=== PATIENT | female | born 1955 | race Caucasian/White ===

== ENCOUNTER 2016-12-17 13:10 | Outpatient (CLI) | payer BC ==
[2016-12-17 15:12] LABS: Hematocrit 44.2 % (36.0-47.0); Mean Platelet Volume 6.1 fL (7.4-10.4); Red Blood Cell (RBC) Count 4.59 mill/uL (4.20-5.40); White Blood Cell (WBC) Count 7.1 thou/uL (4.8-10.8)
--- NOTE | 2016-12-19 09:05 | EKG ---
Test Reason : PREOP Blood Pressure : / mmHG Vent. Rate : 081 BPM Atrial Rate : 081 BPM P-R Int : 144 ms QRS Dur : 092 ms QT Int : 396 ms P-R-T Axes : 061 045 062 degrees QTc Int : 460 ms Normal sinus rhythm Nonspecific ST and T wave abnormality Abnormal ECG When compared with ECG of 01-MAR-2013 17:26, Nonspecific T wave abnormality now evident in Lateral leads Confirmed by GARETH RUIZ ([id number]) on 12/19/2016 9:05:18 AM Referred By: BRONWYN Confirmed By:GARETH RUIZ
== END 2016-12-17 13:11 | disposition home or self-care (01) ==
LOC: LABBT 13:10
PROVIDERS: ATTEND Surgery
DX: Z01.818 Encounter for other preprocedural examination (principal); M48.06 Spinal stenosis, lumbar region; M51.16 Intervertebral disc disorders with radiculopathy, lumbar region
CPT/HCPCS: 85027; 85610; 85730; 93005; 93010

== ENCOUNTER 2016-12-19 10:19 | Day surgery (SDC) | payer BC ==
[2016-12-17 13:38] VITALS: BMI 28.2
[2016-12-19 11:28] LABS: Anion Gap 12 mmol/L (10-20); BUN (Urea Nitrogen) 17 mg/dL (9.8-20.1); Calc. Creatinine Clearance 111 mL/min (70-130); Calcium 10.1 mg/dL (7.8-10.44); Carbon Dioxide 26 mmol/L (23-31); Chloride 106 mmol/L (98-107); Estimated GFR-MDRD Greater than 90
[2016-12-19] MEDS ORDERED: Fentanyl 100 MCG/2 ML VIAL ONE (14:08)
[2016-12-19] MEDS ORDERED: Bacitracin Zinc Ointment 30 gm TUBE ONE (14:12)
[2016-12-19] MEDS ORDERED: Sodium Chloride 0.9% 10 ML ONE (14:12)
[2016-12-19] MEDS ORDERED: Thrombin 5000 UNITS/5 ML VIAL ONE (14:13)
[2016-12-19] MEDS ORDERED: Midazolam HCl 2 mg/2 ml Vial ONE (14:36)
[2016-12-19] MEDS ORDERED: Ondansetron HCl/PF 4 MG/2 ML Vial ONE (14:39)
[2016-12-19] MEDS ORDERED: Dexamethasone 20 MG/5 ML VIAL ONE (14:39)
[2016-12-19] MEDS ORDERED: Ketorolac Tromethamine 30 MG/ML VIAL ONE (14:39)
[2016-12-19] MEDS ORDERED: Propofol 200 MG/20 ML VIAL ONE (14:39)
[2016-12-19] MEDS ORDERED: Lidocaine 1% PF 5 ML VIAL ONE (14:39)
[2016-12-19] MEDS ORDERED: HYDROmorphone 2 MG/ML VIAL SLOW IVP PRN (16:44)
[2016-12-19] MEDS ORDERED: Ondansetron HCl/PF 4 MG/2 ML Vial IVP PRN (16:44)
[2016-12-19] MEDS ORDERED: Acetaminophen 325 MG TAB PO PRN (16:45)
[2016-12-19] MEDS ORDERED: Fleet Enema 133 ML BOT PR PRN (16:45)
[2016-12-19] MEDS ORDERED: Morphine Sulfate 2 MG/ML SYRINGE SLOW IVP PRN (16:45)
[2016-12-19] MEDS ORDERED: Mag-Al 1200 mg/1200 mg/30 ML UDCUP PO PRN (16:45)
[2016-12-19] MEDS ORDERED: HYDROcodone/Acetaminophen 7.5/325 mg Tablet PO PRN (16:45)
[2016-12-19] MEDS ORDERED: Acetaminophen/Codeine 30-300mg Tablet PO PRN (16:45)
[2016-12-19] MEDS ORDERED: Bisacodyl 10 MG SUPP PR PRN (16:45)
[2016-12-19] MEDS ORDERED: Milk Of Magnesia 30 ML UDCUP PO PRN (16:45)
[2016-12-19] MEDS ORDERED: tiZANidine HCl 4 MG TAB PO PRN (16:45)
[2016-12-19] MEDS ORDERED: Promethazine HCl 25 MG/ML VIAL IM PRN (16:45)
[2016-12-19] MEDS ORDERED: traMADol HCl 50 MG TAB PO PRN (16:45)
[2016-12-19] MEDS ORDERED: Temazepam 15 MG CAP PO PRN (16:59)
[2016-12-19] MEDS: Sodium Chloride 0.9% 1,000 ML IV SCH ×2 (18:01→20:35)
[2016-12-19] MEDS ORDERED: Ubidecarenone 50 MG CAP PO SCH (21:00)
[2016-12-19] MEDS ORDERED: Loratadine 10 MG TAB PO SCH (21:00)
[2016-12-20] MEDS ORDERED: Lisinopril/Hydrochlorothiazide 10 mg/12.5 mg Tablet PO SCH (09:00)
[2016-12-20] MEDS ORDERED: Non-Formulary Item 1 EACH (Biotin [Biotin] 10,000 MCG) PO SCH (09:00)
[2016-12-20] MEDS ORDERED: Fish Oil 1,000 MG CAP PO SCH (09:00)
[2016-12-20] MEDS ORDERED: Cyanocobalamin (Vitamin B-12) 1,000 MCG TAB PO SCH (09:00)
--- NOTE | 2016-12-20 09:09 | PRG ---
DATE OF SERVICE: 12/20/2016 Ms. Arango is doing well postoperative day 1 from left L5-S1 hemilaminotomy, foraminotomy, and d iskectomy. She has as expected some incisional pain and her left leg pain has certainly improved co mpared to before the surgery. We went over intraoperative and postoperative issues and I should not e she has good strength in her lower extremity myotomes. We will plan for dismissal.
--- NOTE | 2016-12-20 09:58 | OP ---
DATE OF SURGERY: 12/19/2016 OR: OR #12. WOUND TYPE: Type 1 wound. SURGEON: Oseas Resendiz M.D. BUILDING DRAFTER: Timur Duarte PA-C PREPROCEDURE DIAGNOSES: Left L5-S1 disk extrusion with left S1 radiculopathy. POSTPROCEDURE DIAGNOSES: Left L5-S1 disk extrusion with left S1 radiculopathy. PROCEDURE: 1. Left L5-S1 hemilaminotomy, foraminotomy, and diskectomy. 2. Use of operative microscope for microdissection. DESCRIPTION OF PROCEDURE: After informed consent was obtained from the patient, the patient brought to OR 12. Proper patient pause and identification was carried out. She was placed under excellent general endotracheal anesthesia and positioned prone on the operating room table. The L5-S1 dorsal spines and lamina were identified, an incision was drawn out over this area. This area was sterile ly cleansed, prepared, and draped. Proper patient pause and identification was carried out. The wo und was then opened with a combination of sharp, monopolar and blunt dissection, left L5-S1 hemilami na complex was exposed. Localization film confirmed our area of interest. We then performed a left L5-S1 hemilaminotomy, foraminotomy, and with the use of the operative microscope, performed a diske ctomy. We had excellent decompression of the left S1 nerve root and assured freedom of the left L5 nerve root. We were satisfied with our decompression. There was no spinal fluid leak. Hemostasis was maximized throughout. We then copiously irrigated the wound and closed it in anatomic layers fo llowing the sprinkling of vancomycin powder. The patient then emerged from anesthesia.
[2016-12-20 12:39] VITALS: BP 115/72; TEMP 97.6
== END 2016-12-20 09:20 | disposition home or self-care (01) ==
LOC: SDC 10:19 → SURG A 16:45 → SDC 12-20 09:20
PROVIDERS: ATTEND Surgery
PROC: 0SB20ZZ Excision of Lumbar Vertebral Disc, Open Approach (ICD-10-PCS; principal; 2016-12-19)
PROC: 01NB0ZZ Release Lumbar Nerve, Open Approach (ICD-10-PCS; principal; 2016-12-19)
DX: M51.17 Intervertebral disc disorders with radiculopathy, lumbosacral region (principal); I10 Essential (primary) hypertension; E78.5 Hyperlipidemia, unspecified; Z85.42 Personal history of malignant neoplasm of other parts of uterus; Z88.8 Allergy status to other drugs, medicaments and biological substances; Z90.710 Acquired absence of both cervix and uterus; Z80.42 Family history of malignant neoplasm of prostate; Z82.49 Family history of ischemic heart disease and other diseases of the circulatory system; Z79.899 Other long term (current) drug therapy
CPT/HCPCS: 76001; 80048; A4216; J1100; J1885; J2001; J2250; J2405; J2704; J3010; J3370; J3490

== ENCOUNTER 2017-02-27 12:30 | Outpatient (CLI) | payer BC | END 2017-02-27 12:31 | disposition home or self-care (01) | LOC: BICMAMMO 12:30 | PROVIDERS: ATTEND Obstetrics & Gynecology | DX: Z12.31 Encounter for screening mammogram for malignant neoplasm of breast (principal) | CPT/HCPCS: 77063 ==

== ENCOUNTER 2017-05-06 08:51 | Outpatient (CLI) | payer BC | END 2017-05-06 08:52 | disposition home or self-care (01) | LOC: LABBT 08:51 | PROVIDERS: ATTEND Orthopaedic Surgery | DX: Z01.810 Encounter for preprocedural cardiovascular examination (principal); Z01.812 Encounter for preprocedural laboratory examination; M17.12 Unilateral primary osteoarthritis, left knee | CPT/HCPCS: 87081; 93005; 93010 ==

== ENCOUNTER 2017-05-06 09:00 | Inpatient (IN) | payer BC ==
[2017-05-06 09:30] VITALS: BMI 27.3
[2017-05-19] MEDS ORDERED: Fentanyl 100 MCG/2 ML VIAL ONE ×3 (05:46→06:44)
[2017-05-19] MEDS ORDERED: Midazolam HCl 2 mg/2 ml Vial ONE (06:09)
[2017-05-19] MEDS ORDERED: Bupivacaine 0.5% 10 ML VIAL ONE (06:16)
[2017-05-19] MEDS ORDERED: CEFAZOLIN/Water 2 GM/20 ML SYRINGE ONE (06:19)
[2017-05-19] MEDS ORDERED: Tranexamic Acid 1,000 MG/100 ML BAG ONE ×2 (06:19→09:00)
[2017-05-19] MEDS ORDERED: Lidocaine 1% (PF) 30 ML VIAL ONE (06:19)
[2017-05-19] MEDS ORDERED: traMADol HCl 50 MG TAB PO PRN ×3 (07:08→08:56)
[2017-05-19] MEDS ORDERED: HYDROcodone/Acetaminophen 10/325 mg Tablet PO PRN ×2 (07:08)
[2017-05-19] MEDS ORDERED: Zolpidem Tartrate 5 MG TAB PO PRN ×2 (07:08→08:56)
[2017-05-19] MEDS ORDERED: Ondansetron PF 4 MG/2 ML Vial IVP PRN ×2 (07:08→08:56)
[2017-05-19] MEDS ORDERED: Promethazine HCl 25 MG/ML VIAL IM PRN ×3 (07:08→08:56)
[2017-05-19] MEDS ORDERED: Ropivacaine 0.2% 550 ML 550 ML NERVE BLCK SCH (07:08)
[2017-05-19] MEDS ORDERED: HYDROmorphone 2 MG/ML VIAL SLOW IVP PRN (08:27)
[2017-05-19] MEDS ORDERED: Ondansetron HCl/PF 4 MG/2 ML Vial IVP PRN (08:27)
[2017-05-19] MEDS ORDERED: Promethazine HCl 25 MG/ML VIAL SLOW IVP PRN (08:27)
[2017-05-19] MEDS ORDERED: Acetaminophen 325 MG TAB PO PRN (08:56)
[2017-05-19] MEDS ORDERED: diphenhydrAMINE 25 MG CAP PO PRN (08:56)
[2017-05-19] MEDS ORDERED: Furosemide 20 MG TAB PO PRN (08:58)
[2017-05-19] MEDS ORDERED: Non-Formulary Item 1 EACH (Multivitamin [Multivitamins] 1 CAP) PO SCH (09:00)
[2017-05-19] MEDS ORDERED: Tranexamic Acid 1,000 MG in Sodium Chloride 0.9% 100 ML IVPB SCH (09:00)
--- NOTE | 2017-05-19 09:09 | OP ---
DATE OF PROCEDURE: 05/19/2017 PREOPERATIVE DIAGNOSIS: Left knee osteoarthrosis. POSTOPERATIVE DIAGNOSIS: Left knee osteoarthrosis. PROCEDURE PERFORMED: Left total knee replacement using [employer] pinless navigation. SURGEON: Chad Moeller M.D. MIXOLOGIST: Raul Aleman PA-C. BLOOD LOSS: Minimal. COMPLICATIONS: None. ANESTHESIA: The patient had general anesthetic, she also had preoperative blocks. IMPLANTS: The left knee was a [employer] total knee system, femur was size 4 cruciate retaini ng femur. We used a size 3 universal tibial baseplate. We used a 3 x 9 mm CSX3 tibial bearing and a n asymmetric 29 x 9 X3 patella. DISPOSITION: She did go to the recovery room in stable condition. INDICATIONS: This is a 62-year-old female who has failed nonoperative treatment for left knee arthri tis and at this time wished to have her knee replaced. PROCEDURE IN DETAIL: After all appropriate consent forms were explained and signed, the patient was taken back to the Operating Room and at this time was given general anesthetic. Once the level of ane sthesia was appropriate, a well-padded tourniquet was placed on the left leg and the leg was then pre pped and draped in standard surgical fashion. The limb was exsanguinated and tourniquet taken up to 3 00 mmHg. Midline incision was made with a 10 blade down through the skin and subcutaneous tissue. Bov ie electrocautery was used to coagulate any brisk venous bleeding. A new blade was used to make a med ial parapatellar arthrotomy. Small subperiosteal release was performed medially and excess fat pad wa s removed. The knee was flexed up to gain access to the femur. The femur was navigated and distal fem oral resection was made. Epicondylar access was used to align our sizing jig and this was pinned in p lace. We sized our femur to be a size 4 cruciate retaining femur, 4:1 cutting block was applied and p inned. Anterior and posterior chamfer cuts were then made. We navigated out our proximal tibia and ma de our proximal tibial resection. Spreaders were used to remove any posterior osteophytes off the nikky k of the femur as well as remaining meniscal tissue. A long alignment michele was then used to achieve co rrect rotation of our tibial baseplate and a size 3 universal was chosen. This was pinned in place. W e trialed the polyethylene and a a 3 x 9 mm CSX3 tibial bearing polyethylene gave us full extension a nd good stability throughout range of motion. Two towel clips and a saw were used to cut our patella. Three lug nuts were drilled and 29 x 9 X3 patella was trialed which sat nicely in the trochlear groo ve. We then drilled our femur and punched our tibia. All components were removed. The knee was thorou ghly irrigated and dried. Cement was mixed into the cement gun on the back table. Components were the n placed. The knee was held out in full extension until the cement had dried. All excess bone cement was removed. Multiple #2 Vicryl stitches as well as a Quill was used to close our extensor mechanism . 0 Quill followed by a running Monoderm was then used to close the skin. Surgicel glue was then used on the skin. Once this had dried, soft tissue dressing was applied to the limb, tourniquet was let d own, and the toes pinked up nicely. The patient was then awakened and taken to the Recovery Room in stable condition. All counts were correct at the end of the case. The patient did receive preoperativ e IV antibiotics. The patient was injected with Exparel for postoperative pain relief.
[2017-05-19] MEDS: Fentanyl 100 MCG/2 ML VIAL IV PRN (10:29)
[2017-05-19] MEDS: Ferrous Gluconate 324 MG TAB PO SCH ×2 (10:35→20:50)
[2017-05-19] MEDS: Multivitamin W/ Minerals 1 TAB PO SCH (10:36)
[2017-05-19] MEDS: Senokot S 8.6-50 MG TAB PO SCH ×2 (10:36→20:50)
[2017-05-19] MEDS ORDERED: Loperamide HCl 2 MG CAP PO PRN (10:43)
[2017-05-19] MEDS ORDERED: Senokot 8.6 MG TAB PO PRN (10:43)
[2017-05-19] MEDS ORDERED: Artificial Tears 18 DROP/0.9 ML EA EYE PRN (10:43)
[2017-05-19] MEDS ORDERED: hydrALAZINE 20 MG/ML VIAL SLOW IVP PRN (10:43)
[2017-05-19] MEDS ORDERED: Chloraseptic Spray 180 ml Bottle PO PRN (10:43)
[2017-05-19] MEDS ORDERED: Mag-Al 1200 mg/1200 mg/30 ML UDCUP PO PRN (10:43)
[2017-05-19] MEDS ORDERED: Milk Of Magnesia 30 ML UDCUP PO PRN (10:43)
[2017-05-19] MEDS ORDERED: Eucerin (Mineral Oil/Petrolatum,White) 30 gm Jar TOP PRN (10:43)
[2017-05-19] MEDS ORDERED: Diabetic Tussin 200 MG/10 ML UDCUP PO PRN (10:43)
--- NOTE | 2017-05-19 10:48 | PDOC.PN ---
- Subjective Encounter Start Date: 05/19/17 Encounter Start Time: 10:46 -: old records requested/rev s/p left total knee replacement earlier today, doing well post op Patient seen and examined. - Objective MAR Reviewed: Yes Vital Signs & Weight: Weight Weight 175 lb Phys Exam - Physical Examination Constitutional: NAD HEENT: PERRLA, moist MMs, sclera anicteric Neck: no JVD, supple Respiratory: no wheezing, no rales, no rhonchi Cardiovascular: RRR, no significant murmur, no rub Gastrointestinal: soft, non-tender, no distention, positive bowel sounds Musculoskeletal: no edema, pulses present left knee with dressing, nerve block+ Neurological: non-focal, normal sensation Psychiatric: normal affect, A&O x 3 Skin: no rash, normal turgor Dx/Plan (1) Status post total left knee replacement Code(s): Z96.652 - PRESENCE OF LEFT ARTIFICIAL KNEE JOINT Status: Acute (2) Allergic rhinitis Code(s): J30.9 - ALLERGIC RHINITIS, UNSPECIFIED Status: Chronic (3) Hypertension Code(s): I10 - ESSENTIAL (PRIMARY) HYPERTENSION Status: Chronic (4) Osteoarthritis Code(s): M19.90 - UNSPECIFIED OSTEOARTHRITIS, UNSPECIFIED SITE Status: Chronic - Plan cont current plan of care, PT/OT, social services analyst * continue aspirin for DVT prophylaxis * add pepcid 20 mg po bid for GI prophylaxis * continue PT/OT as per [facility] protocol treatment * code status: full code * pain control with pain meds as ordered * medication reviewed as below * symptomatic treatment * continue selected home medication as below. History of Present Illnes - History of Present Illness Reason for Visit: admitted for left total knee replacement History of Present Illness: consulted for medical management. - Past Medical History Cardiac: HTN, Hyperlipidemia Musculoskeletal: Osteoarthritis ENT: Allergic rhinitis - Past Surgical History Past Surgical History: Other (hysterescopy and endometrial polyp removal, colonoscopy), Total Knee Replacement (left) - Past Family History Family History: None - Past Social History Smoke: No Alcohol: None Drugs: None Lives: With Family Domestic Violence: Negative Review of Systems - Review of Systems Constitutional: negative: fever, chills, sweats, weakness, malaise, other ENT: negative: Ear Pain, Ear Discharge, Nose Pain, Nose Discharge, Nose Congestion, Mouth Pain, Mouth Swelling, Throat Pain, Throat Swelling, Other Respiratory: negative: Cough, Dry, Shortness of Breath, Hemoptysis, SOB with Excertion, Pleuritic Pain, Sputum, Wheezing Cardiovascular: negative: chest pain, palpitations, orthopnea, paroxysmal nocturnal dyspnea, edema, light headedness, other Gastrointestinal: negative: Nausea, Vomiting, Abdominal Pain, Diarrhea, Constipation, Melena, Hematochezia, Other Genitourinary: negative: Dysuria, Frequency, Incontinence, Hematuria, Retention , Other Musculoskeletal: negative: Neck Pain, Shoulder Pain, Arm Pain, Back Pain, Hand Pain, Leg Pain, Foot Pain, Other - Medications/Allergies Allergies/Adverse Reactions: Allergies Allergy/AdvReac Type Severity Reaction Status Date / Time prednisone Allergy Verified 05/06/17 09:30 Medications: Current Medications Acetaminophen (Tylenol) 650 mg PO Q4H PRN PRN Reason: FELIPE/ T > 101F; Mild Pain (1-3) Hydrocodone Bitart/Acetaminophen ([place] 10/325) 1 tab PO Q4H PRN PRN Reason: Pain (1-3) Hydrocodone Bitart/Acetaminophen ([place] 10/325) 2 tab PO Q4H PRN PRN Reason: PAIN (4-6) Al Hydroxide/Mg Hydroxide (Maalox) 15 ml PO Q4H PRN PRN Reason: Heartburn or Indigestion Artificial Tears (Tears Naturale) 0 drop EA EYE PRN PRN PRN Reason: Dry Eyes Aspirin (Ecotrin) 81 mg PO BID [facility] Cefazolin Sodium (Ancef) 2 gm SLOW IVP Q8HR [facility] Stop: 05/19/17 22:01 Diphenhydramine HCl (Benadryl) 25 mg PO Q6H PRN PRN Reason: Itching Famotidine (Pepcid) 20 mg PO BID [facility] Fentanyl (Sublimaze) 50 mcg IV Q1H PRN PRN Reason: BT PAIN Last Admin: 05/19/17 10:29 Dose: 50 mcg Fentanyl (Pacu-Sublimaze) 50 mcg SLOW IVP Q10MIN PRN PRN Reason: Moderate to Severe Pain (6-10) Stop: 05/19/17 11:27 Ferrous Gluconate (Fergon) 324 mg PO BID [facility] Last Admin: 05/19/17 10:35 Dose: Not Given Fluticasone Propionate (Flonase Nasal [place]) 0 gm NASAL QAM [facility] Furosemide (Lasix) 20 mg PO PRN PRN PRN Reason: Edema Guaifenesin (Robitussin Sf) 200 mg PO Q4H PRN PRN Reason: Cough Lisinopril/HCTZ (Prinizide 10-12.5) 1 tab PO QAM [facility] Hydralazine HCl (Apresoline) 10 mg SLOW IVP Q4H PRN PRN Reason: Systolic BP > 180 Hydromorphone HCl (Pacu-Dilaudid) 0.5 mg SLOW IVP Q10MIN PRN PRN Reason: Moderate to Severe Pain (6-10) Stop: 05/19/17 11:27 Ropivacaine (Ropivacaine 0.2% 550 Ml) 550 mls @ 0 mls/hr NERVE BLCK INF [facility] PRN Reason: As Directed Sodium Chloride (Normal Saline 0.9%) 1,000 mls @ 100 mls/hr IV .Q10H [facility] Tranexamic Acid 1,000 mg/ (Sodium Chloride) 110 mls @ 200 mls/hr IVPB ONE [facility] Stop: 05/19/17 14:00 Vancomycin HCl 1 gm/ Device 200 mls @ 200 mls/hr IVPB 1800 [facility] Stop: 05/19/17 18:59 Iron/Minerals/Multivitamins (Theragran M) 1 tab PO DAILY [facility] Last Admin: 05/19/17 10:36 Dose: Not Given Ketorolac Tromethamine (Toradol) 30 mg IVP Q6HR [facility] Stop: 05/21/17 06:01 Loperamide HCl (Imodium) 2 mg PO PRN PRN PRN Reason: Diarrhea/Loose Stools Loratadine (Claritin) 10 mg PO HS [facility] Magnesium Hydroxide (Milk Of Magnesium) 30 ml PO DAILYPRN PRN PRN Reason: Constipation Mineral Oil/White Petrolatum (Eucerin Cream) 0 gm TOP BIDPRN PRN PRN Reason: Dry Skin Ondansetron HCl (Pacu-Zofran) 4 mg IVP ONE PRN PRN Reason: Nausea/Vomiting Stop: 05/19/17 11:27 Ondansetron HCl (Zofran) 4 mg IVP Q6H PRN PRN Reason: Nausea/Vomiting Phenol (Chloraseptic [place] 180 Ml Bot) 0 ml PO PRN PRN PRN Reason: Sore Throat Promethazine HCl (Pacu-Phenergan) 6.25 mg SLOW IVP ONE PRN PRN Reason: Nausea/Vomiting Stop: 05/19/17 11:27 Promethazine HCl (Pacu-Phenergan) 6.25 mg IM ONE PRN PRN Reason: Nausea/Vomiting Stop: 05/19/17 11:27 Promethazine HCl (Phenergan) 12.5 mg IM Q4H PRN PRN Reason: Nausea/Vomiting Senna (Senokot) 2 tab PO HSPRN PRN PRN Reason: Constipation Senna/Docusate Sodium (Senokot S) 2 tab PO BID [facility] Last Admin: 05/19/17 10:36 Dose: Not Given Sodium Chloride (Flush - Normal Saline) 10 ml IVF PRN PRN PRN Reason: Saline Flush Temazepam (Restoril) 30 mg PO HS [facility] Tramadol HCl (Ultram) 100 mg PO Q6H PRN PRN Reason: Mild Pain (1-3) Zolpidem Tartrate (Ambien) 5 mg PO HSPRN PRN PRN Reason: Insomnia
[2017-05-19] MEDS: Ketorolac Tromethamine 30 MG/ML VIAL IVP SCH ×2 (12:07→17:49)
[2017-05-19] MEDS: Fluticasone Propionate Nasal Spray 16 gm Bottle NASAL SCH (12:08)
[2017-05-19] MEDS: Lisinopril/Hydrochlorothiazide 10 mg/12.5 mg Tablet PO SCH (12:11)
[2017-05-19] MEDS: Aspirin 81 mg Enteric Coated Tablet PO SCH ×2 (12:16→21:15)
[2017-05-19] MEDS: Sodium Chloride 0.9% 1,000 ML IV SCH ×2 (12:17→19:19)
[2017-05-19] MEDS ORDERED: Dexamethasone 20 MG/5 ML VIAL ONE (15:00)
[2017-05-19] MEDS ORDERED: Ondansetron PF 4 MG/2 ML Vial ONE (15:00)
[2017-05-19] MEDS ORDERED: PROPOFOL 200 MG/20 ML VIAL ONE (15:00)
[2017-05-19] MEDS ORDERED: Ropivacaine 0.5% HCl/PF (150 MG/30 ML VIAL) ONE (15:12)
[2017-05-19] MEDS ORDERED: Ropivacaine 0.2% HCl/PF (40 MG/20 ML VIAL) ONE (15:12)
[2017-05-19] MEDS: CEFAZOLIN/Water 2 GM/20 ML SYRINGE SLOW IVP SCH ×2 (15:48→21:16)
[2017-05-19] MEDS ORDERED: Vancomycin HCl 1 GM in Premix Bag 1 BAG IVPB SCH (18:00)
[2017-05-19] MEDS: Temazepam 15 MG CAP PO SCH (21:14)
[2017-05-19] MEDS: Famotidine 20 MG TAB PO SCH (21:14)
[2017-05-19] MEDS: Loratadine 10 MG TAB PO SCH (21:15)
[2017-05-20] MEDS: Ketorolac Tromethamine 30 MG/ML VIAL IVP SCH ×5 (00:21→23:38)
[2017-05-20] MEDS: Sodium Chloride 0.9% 1,000 ML IV SCH ×2 (04:10→15:02)
[2017-05-20 04:48] LABS: Mean Corpuscular HGB CONC 32.6 g/dL (32.0-36.0); Mean Corpuscular Hemoglobin 30.8 pg (27.0-31.0); Mean Corpuscular Volume 94.6 fl (81.0-99.0); Mean Platelet Volume 6.1 fL (7.4-10.4); Platelet Count 196 thou/uL (130-400); RBC Distribution Width 11.8 % (11.5-14.5); Red Blood Cell (RBC) Count 3.88 mill/uL (4.20-5.40); White Blood Cell (WBC) Count 11.8 thou/uL (4.8-10.8)
[2017-05-20] MEDS: Fentanyl 100 MCG/2 ML VIAL IV PRN (07:32)
[2017-05-20] MEDS: Fluticasone Propionate Nasal Spray 16 gm Bottle NASAL SCH (09:35)
[2017-05-20] MEDS: Senokot S 8.6-50 MG TAB PO SCH ×2 (09:35→22:01)
[2017-05-20] MEDS: Multivitamin W/ Minerals 1 TAB PO SCH (09:35)
[2017-05-20] MEDS: Famotidine 20 MG TAB PO SCH ×2 (09:36→22:02)
[2017-05-20] MEDS: Ferrous Gluconate 324 MG TAB PO SCH ×2 (09:36→22:00)
[2017-05-20] MEDS: Aspirin 81 mg Enteric Coated Tablet PO SCH ×2 (09:36→21:59)
[2017-05-20] MEDS: Lisinopril/Hydrochlorothiazide 10 mg/12.5 mg Tablet PO SCH (09:37)
--- NOTE | 2017-05-20 09:39 | PDOC.PN ---
- Subjective Encounter Start Date: 05/20/17 Encounter Start Time: 08:20 Patient seen and examined. No new complaints. No overnight events per pt percocet works better than hydrocodon for her pain - Objective MAR Reviewed: Yes Vital Signs & Weight: Vital Signs (12 hours) Pulse Resp BP Pulse Ox 05/20/17 00:21 69 16 112/70 94 L Weight Weight 175 lb I&O: 05/19/17 05/20/17 05/21/17 06:59 06:59 06:59 Intake Total 1650 Output Total 1000 Balance 650 Result Diagrams: 05/20/17 03:55 Phys Exam - Physical Examination Constitutional: NAD HEENT: PERRLA, moist MMs, sclera anicteric Neck: no JVD, supple Respiratory: no wheezing, no rales, no rhonchi Cardiovascular: RRR, no significant murmur, no rub Gastrointestinal: soft, non-tender, no distention, positive bowel sounds Musculoskeletal: no edema, pulses present surgical site with dressing, nerve block + Neurological: non-focal, normal sensation, moves all 4 limbs Psychiatric: normal affect, A&O x 3 Skin: no rash, normal turgor Dx/Plan (1) Status post total left knee replacement Code(s): Z96.652 - PRESENCE OF LEFT ARTIFICIAL KNEE JOINT Status: Acute (2) Allergic rhinitis Code(s): J30.9 - ALLERGIC RHINITIS, UNSPECIFIED Status: Chronic (3) Hypertension Code(s): I10 - ESSENTIAL (PRIMARY) HYPERTENSION Status: Chronic (4) Osteoarthritis Code(s): M19.90 - UNSPECIFIED OSTEOARTHRITIS, UNSPECIFIED SITE Status: Chronic - Plan cont current plan of care, plan discussed w/ family, PT/OT * medication reviewed as below * symptomatic treatment * continue aspirin for DVT prophylaxis * continue PT as per [facility] protocol * pain control * will ask ortho to give prescription for percocet per pt request. Review of Systems - Review of Systems Eyes: negative: Pain, Vision Change, Conjunctivae Inflammation, Eyelid Inflammation, Redness, Other ENT: negative: Ear Pain, Ear Discharge, Nose Pain, Nose Discharge, Nose Congestion, Mouth Pain, Mouth Swelling, Throat Pain, Throat Swelling, Other Respiratory: negative: Cough, Dry, Shortness of Breath, Hemoptysis, SOB with Excertion, Pleuritic Pain, Sputum, Wheezing Cardiovascular: negative: chest pain, palpitations, orthopnea, paroxysmal nocturnal dyspnea, edema, light headedness, other Gastrointestinal: negative: Nausea, Vomiting, Abdominal Pain, Diarrhea, Constipation, Melena, Hematochezia, Other Genitourinary: negative: Dysuria, Frequency, Incontinence, Hematuria, Retention , Other Musculoskeletal: negative: Neck Pain, Shoulder Pain, Arm Pain, Back Pain, Hand Pain, Leg Pain, Foot Pain, Other Skin: negative: Rash, Lesions, Ricardo, Bruising, Other - Medications/Allergies Allergies/Adverse Reactions: Allergies Allergy/AdvReac Type Severity Reaction Status Date / Time prednisone Allergy Verified 05/06/17 09:30 Medications: Current Medications Acetaminophen (Tylenol) 650 mg PO Q4H PRN PRN Reason: FELIPE/ T > 101F; Mild Pain (1-3) Hydrocodone Bitart/Acetaminophen ([place] 10/325) 1 tab PO Q4H PRN PRN Reason: Pain (1-3) Hydrocodone Bitart/Acetaminophen ([place] 10/325) 2 tab PO Q4H PRN PRN Reason: PAIN (4-6) Al Hydroxide/Mg Hydroxide (Maalox) 15 ml PO Q4H PRN PRN Reason: Heartburn or Indigestion Artificial Tears (Tears Naturale) 0 drop EA EYE PRN PRN PRN Reason: Dry Eyes Aspirin (Ecotrin) 81 mg PO BID [facility] Last Admin: 05/20/17 09:36 Dose: 81 mg Diphenhydramine HCl (Benadryl) 25 mg PO Q6H PRN PRN Reason: Itching Famotidine (Pepcid) 20 mg PO BID [facility] Last Admin: 05/20/17 09:36 Dose: 20 mg Fentanyl (Sublimaze) 50 mcg IV Q1H PRN PRN Reason: BT PAIN Last Admin: 05/20/17 07:32 Dose: 50 mcg Ferrous Gluconate (Fergon) 324 mg PO BID [facility] Last Admin: 05/20/17 09:36 Dose: 324 mg Fluticasone Propionate (Flonase Nasal [place]) 0 gm NASAL QAM [facility] Last Admin: 05/20/17 09:35 Dose: 1 spr Furosemide (Lasix) 20 mg PO PRN PRN PRN Reason: Edema Guaifenesin (Robitussin Sf) 200 mg PO Q4H PRN PRN Reason: Cough Lisinopril/HCTZ (Prinizide 10-12.5) 1 tab PO QAM [facility] Last Admin: 05/20/17 09:37 Dose: 1 tab Hydralazine HCl (Apresoline) 10 mg SLOW IVP Q4H PRN PRN Reason: Systolic BP > 180 Ropivacaine (Ropivacaine 0.2% 550 Ml) 550 mls @ 0 mls/hr NERVE BLCK INF [facility] PRN Reason: As Directed Sodium Chloride (Normal Saline 0.9%) 1,000 mls @ 100 mls/hr IV .Q10H [facility] Last Admin: 05/20/17 04:10 Dose: Not Given Iron/Minerals/Multivitamins (Theragran M) 1 tab PO DAILY [facility] Last Admin: 05/20/17 09:35 Dose: 1 tab Ketorolac Tromethamine (Toradol) 30 mg IVP Q6HR [facility] Stop: 05/21/17 06:01 Last Admin: 05/20/17 09:28 Dose: 30 mg Loperamide HCl (Imodium) 2 mg PO PRN PRN PRN Reason: Diarrhea/Loose Stools Loratadine (Claritin) 10 mg PO [facility] Last Admin: 05/19/17 21:15 Dose: 10 mg Magnesium Hydroxide (Milk Of Magnesium) 30 ml PO DAILYPRN PRN PRN Reason: Constipation Mineral Oil/White Petrolatum (Eucerin Cream) 0 gm TOP BIDPRN PRN PRN Reason: Dry Skin Ondansetron HCl (Zofran) 4 mg IVP Q6H PRN PRN Reason: Nausea/Vomiting Phenol (Chloraseptic [place] 180 Ml Bot) 0 ml PO PRN PRN PRN Reason: Sore Throat Promethazine HCl (Phenergan) 12.5 mg IM Q4H PRN PRN Reason: Nausea/Vomiting Senna (Senokot) 2 tab PO HSPRN PRN PRN Reason: Constipation Senna/Docusate Sodium (Senokot S) 2 tab PO BID [facility] Last Admin: 05/20/17 09:35 Dose: 2 tab Sodium Chloride (Flush - Normal Saline) 10 ml IVF PRN PRN PRN Reason: Saline Flush Last Admin: 05/20/17 07:40 Dose: 10 ml Temazepam (Restoril) 30 mg PO [facility] Last Admin: 05/19/17 21:14 Dose: 30 mg Tramadol HCl (Ultram) 100 mg PO Q6H PRN PRN Reason: Mild Pain (1-3) Zolpidem Tartrate (Ambien) 5 mg PO HSPRN PRN PRN Reason: Insomnia
[2017-05-20] MEDS ORDERED: oxyCODONE/Acetaminophen 5 mg/325 mg Tablet PO PRN (14:11)
[2017-05-20] MEDS: oxyCODONE/Acetaminophen 5 mg/325 mg Tablet PO PRN ×2 (17:52→21:59)
[2017-05-20] MEDS: Temazepam 15 MG CAP PO SCH (22:00)
[2017-05-20] MEDS: Loratadine 10 MG TAB PO SCH (22:00)
[2017-05-21] MEDS: Sodium Chloride 0.9% 1,000 ML IV SCH (02:10)
[2017-05-21] MEDS: oxyCODONE/Acetaminophen 5 mg/325 mg Tablet PO PRN ×3 (02:15→12:40)
[2017-05-21 06:06] LABS: Hemoglobin 11.3 g/dL (12.0-16.0); Mean Corpuscular HGB CONC 32.9 g/dL (32.0-36.0); Mean Corpuscular Hemoglobin 31.4 pg (27.0-31.0); Mean Corpuscular Volume 95.4 fl (81.0-99.0); Mean Platelet Volume 6.1 fL (7.4-10.4); Platelet Count 180 thou/uL (130-400)
[2017-05-21] MEDS: Ketorolac Tromethamine 30 MG/ML VIAL IVP SCH (06:26)
[2017-05-21] MEDS: Fluticasone Propionate Nasal Spray 16 gm Bottle NASAL SCH (08:00)
[2017-05-21] MEDS: Multivitamin W/ Minerals 1 TAB PO SCH (08:01)
[2017-05-21] MEDS: Aspirin 81 mg Enteric Coated Tablet PO SCH (08:01)
[2017-05-21] MEDS: Famotidine 20 MG TAB PO SCH (08:01)
[2017-05-21] MEDS: Ferrous Gluconate 324 MG TAB PO SCH (08:01)
[2017-05-21] MEDS: Senokot S 8.6-50 MG TAB PO SCH (08:01)
--- NOTE | 2017-05-21 10:12 | PDOC.PN ---
- Subjective Encounter Start Date: 05/21/17 Encounter Start Time: 08:20 Patient seen and examined. No new complaints. No overnight events - Objective MAR Reviewed: Yes Vital Signs & Weight: Vital Signs (12 hours) Temp Pulse Resp BP Pulse Ox 05/21/17 07:48 97.8 F 66 16 139/87 91 L 05/21/17 00:00 97.7 F 72 16 126/77 90 L Weight Admit Weight 175 lb Weight 175 lb I&O: 05/20/17 05/21/17 05/22/17 06:59 06:59 06:59 Intake Total 1650 780 Output Total 1000 1350 Balance 650 -570 Result Diagrams: 05/21/17 05:00 Phys Exam - Physical Examination Constitutional: NAD HEENT: PERRLA, moist MMs, sclera anicteric Neck: no JVD, supple Respiratory: no wheezing, no rales, no rhonchi Cardiovascular: RRR, no significant murmur, no rub Gastrointestinal: soft, non-tender, no distention, positive bowel sounds Musculoskeletal: no edema, pulses present Neurological: non-focal, normal sensation, moves all 4 limbs Psychiatric: normal affect, A&O x 3 Skin: no rash, normal turgor Dx/Plan (1) Status post total left knee replacement Code(s): Z96.652 - PRESENCE OF LEFT ARTIFICIAL KNEE JOINT Status: Acute (2) Allergic rhinitis Code(s): J30.9 - ALLERGIC RHINITIS, UNSPECIFIED Status: Chronic (3) Hypertension Code(s): I10 - ESSENTIAL (PRIMARY) HYPERTENSION Status: Chronic (4) Osteoarthritis Code(s): M19.90 - UNSPECIFIED OSTEOARTHRITIS, UNSPECIFIED SITE Status: Chronic - Plan cont current plan of care, plan discussed w/ family, PT/OT * medication reviewed as below * symptomatic treatment * stable for discharge * will sign off. Review of Systems - Review of Systems ENT: negative: Ear Pain, Ear Discharge, Nose Pain, Nose Discharge, Nose Congestion, Mouth Pain, Mouth Swelling, Throat Pain, Throat Swelling, Other Respiratory: negative: Cough, Dry, Shortness of Breath, Hemoptysis, SOB with Excertion, Pleuritic Pain, Sputum, Wheezing Cardiovascular: negative: chest pain, palpitations, orthopnea, paroxysmal nocturnal dyspnea, edema, light headedness, other Gastrointestinal: negative: Nausea, Vomiting, Abdominal Pain, Diarrhea, Constipation, Melena, Hematochezia, Other Genitourinary: negative: Dysuria, Frequency, Incontinence, Hematuria, Retention , Other Musculoskeletal: negative: Neck Pain, Shoulder Pain, Arm Pain, Back Pain, Hand Pain, Leg Pain, Foot Pain, Other Skin: negative: Rash, Lesions, Ricardo, Bruising, Other - Medications/Allergies Allergies/Adverse Reactions: Allergies Allergy/AdvReac Type Severity Reaction Status Date / Time prednisone Allergy Verified 05/06/17 09:30 Medications: Current Medications Acetaminophen (Tylenol) 650 mg PO Q4H PRN PRN Reason: FELIPE/ T > 101F; Mild Pain (1-3) Hydrocodone Bitart/Acetaminophen (Tennyson 10/325) 1 tab PO Q4H PRN PRN Reason: Pain (1-3) Hydrocodone Bitart/Acetaminophen (Tennyson 10/325) 2 tab PO Q4H PRN PRN Reason: PAIN (4-6) Al Hydroxide/Mg Hydroxide (Maalox) 15 ml PO Q4H PRN PRN Reason: Heartburn or Indigestion Artificial Tears (Tears Naturale) 0 drop EA EYE PRN PRN PRN Reason: Dry Eyes Aspirin (Ecotrin) 81 mg PO BID [facility] Last Admin: 05/21/17 08:01 Dose: 81 mg Diphenhydramine HCl (Benadryl) 25 mg PO Q6H PRN PRN Reason: Itching Famotidine (Pepcid) 20 mg PO BID [facility] Last Admin: 05/21/17 08:01 Dose: 20 mg Fentanyl (Sublimaze) 50 mcg IV Q1H PRN PRN Reason: BT PAIN Last Admin: 05/20/17 07:32 Dose: 50 mcg Ferrous Gluconate (Fergon) 324 mg PO BID [facility] Last Admin: 05/21/17 08:01 Dose: 324 mg Fluticasone Propionate (Flonase Nasal Ashton) 0 gm NASAL QAM [facility] Last Admin: 05/21/17 08:00 Dose: 1 spr Furosemide (Lasix) 20 mg PO PRN PRN PRN Reason: Edema Guaifenesin (Robitussin Sf) 200 mg PO Q4H PRN PRN Reason: Cough Lisinopril/HCTZ (Prinizide 10-12.5) 1 tab PO QAM [facility] Last Admin: 02/27/18 09:37 Dose: 1 tab Hydralazine HCl (Apresoline) 10 mg SLOW IVP Q4H PRN PRN Reason: Systolic BP > 180 Ropivacaine (Ropivacaine 0.2% 550 Ml) 550 mls @ 0 mls/hr NERVE BLCK INF [facility] PRN Reason: As Directed Sodium Chloride (Normal Saline 0.9%) 1,000 mls @ 100 mls/hr IV .Q10H [facility] Last Admin: 05/21/17 02:10 Dose: Not Given Iron/Minerals/Multivitamins (Theragran M) 1 tab PO DAILY [facility] Last Admin: 05/21/17 08:01 Dose: 1 tab Loperamide HCl (Imodium) 2 mg PO PRN PRN PRN Reason: Diarrhea/Loose Stools Loratadine (Claritin) [address] [facility] Last Admin: 05/20/17 22:00 Dose: 10 mg Magnesium Hydroxide (Milk Of Magnesium) 30 ml PO DAILYPRN PRN PRN Reason: Constipation Mineral Oil/White Petrolatum (Eucerin Cream) 0 gm TOP BIDPRN PRN PRN Reason: Dry Skin Ondansetron HCl (Zofran) 4 mg IVP Q6H PRN PRN Reason: Nausea/Vomiting Oxycodone/Acetaminophen (Percocet 5/325) 1 tab PO Q4H PRN PRN Reason: Mild-Moderate Pain (1-5) Oxycodone/Acetaminophen (Percocet 5/325) 2 tab PO Q4H PRN PRN Reason: Moderate to Severe Pain (6-10) Last Admin: 05/21/17 06:25 Dose: 2 tab Phenol (Chloraseptic Ashton 180 Ml Bot) 0 ml PO PRN PRN PRN Reason: Sore Throat Promethazine HCl (Phenergan) 12.5 mg IM Q4H PRN PRN Reason: Nausea/Vomiting Senna (Senokot) 2 tab PO HSPRN PRN PRN Reason: Constipation Senna/Docusate Sodium (Senokot S) 2 tab PO BID [facility] Last Admin: 05/21/17 08:01 Dose: 2 tab Sodium Chloride (Flush - Normal Saline) 10 ml IVF PRN PRN PRN Reason: Saline Flush Last Admin: 05/20/17 15:03 Dose: 10 ml Temazepam (Restoril) [address] [facility] Last Admin: 05/20/17 22:00 Dose: 30 mg Tramadol HCl (Ultram) 100 mg PO Q6H PRN PRN Reason: Mild Pain (1-3) Zolpidem Tartrate (Ambien) 5 mg PO HSPRN PRN PRN Reason: Insomnia
--- NOTE | 2017-05-21 11:20 | DIS ---
DATE OF ADMISSION: 05/19/2017 DATE OF DISCHARGE: 05/21/2017 PRIMARY CARE PHYSICIAN: Nick Vela D.O. DISCHARGE DISPOSITION: Home. PRIMARY DISCHARGE DIAGNOSIS: Status post left total knee replacement. SECONDARY DISCHARGE DIAGNOSES: Allergic rhinitis, hypertension, osteoarthritis. PRIMARY PROCEDURE/OPERATION: Left total knee replacement. RADIOLOGICAL INVESTIGATION: None. SIGNIFICANT LABORATORY DATA: WBC 8.0, hemoglobin 11.3, platelet 180. DISCHARGE MEDICATIONS: Vitamin C 500 mg p.o. b.i.d., Biotin 1 capsule p.o. daily, cetirizine 10 mg p .o. at bedtime, vitamin B12 2500 mcg sublingual daily, Flonase nasal spray daily, Lasix 20 mg p.o. p. r.n. as directed, glucosamine chondroitin sulfate one tablet p.o. b.i.d., probiotic 1 capsule daily, Prinzide 10/12.5 one tablet p.o. daily, Mobic 15 mg p.o. at bedtime p.r.n., multivitamin 1 capsule p. o. daily, Restoril 30 mg p.o. at bedtime, Coenzyme Q10 100 mg p.o. b.i.d. Pain medication will defer to primary team and most likely patient prefers Percocet for pain medicines. CONTRAINDICATIONS: None. CODE STATUS: FULL CODE. INPATIENT DIRECTOR METABOLISM: Dr. Sajan Bonilla was Primary [facility] team was consulted for medical comanagement. ALLERGIES: PREDNISONE. DISCHARGE PLAN: Post hospital, patient will follow up with Dr. Juan Manuel Serrano, Dr. Sajan Bonilla and select at [facility] as instructed. HOSPITAL COURSE: A 62-year-old female who was admitted for left total knee replacement electively wh ich was done by Dr. Moeller. Postoperatively, the patient was on [facility]. Over there, Gus rae was consulted for medical comanagement. We resumed patient's home medication while in hospital. She did not have any complications while in the hospital. Upon discharge, we are prescribing aspiri n for DVT prophylaxis and pain medication will be given by primary team. Overall, this patient is medically stable and she will follow up with orthopedic physician and primar y team. The patient is seen and examined at bedside today. Please see my progress note from today for furthe r detail.
[2017-05-21 12:21] VITALS: BP 123/83; TEMP 98.1
== END 2017-05-21 13:52 | disposition home or self-care (01) | DRG 470 ==
LOC: SJJU 05-19 05:35
PROVIDERS: ADMIT Orthopaedic Surgery; ATTEND Orthopaedic Surgery
PROC: 0SRD0J9 Replacement of Left Knee Joint with Synthetic Substitute, Cemented, Open Approach (ICD-10-PCS; principal; 2017-05-19)
DX: M17.12 Unilateral primary osteoarthritis, left knee (principal); E78.5 Hyperlipidemia, unspecified; I10 Essential (primary) hypertension; Z79.82 Long term (current) use of aspirin
CPT/HCPCS: 36415; 85027; A4306; C1713; C1776; G8978-GP-CL; G8979-GP-CJ; J1100; J1885; J2001; J2250; J2405; J2704; J2795; J3010; J3370; J3490

== ENCOUNTER 2017-05-14 08:41 | Outpatient (CLI) | payer BC ==
[2017-05-14 09:13] LABS: #Basophils 0.1 thou/uL (0.0-0.2); #Eosinphils 0.2 thou/uL (0.0-0.7); #Lymphocytes 1.6 thou/uL (1.20-3.40); #Monocytes 0.7 thou/uL (0.11-0.59); #Neutrophils 3.2 thou/uL (1.40-6.50); %Basophils 1.4 % (0.0-1.0); %Eosinophils 3.4 % (0.0-10.0); %Lymphocytes 27.4 % (21.0-51.0); %Monocytes 11.6 % (0.0-10.0); %Neutrophils 56.3 % (42.0-75.0); Hemoglobin 14.2 g/dL (12.0-16.0); Mean Corpuscular HGB CONC 32.3 g/dL (32.0-36.0); Mean Corpuscular Hemoglobin 30.6 pg (27.0-31.0); Mean Corpuscular Volume 94.6 fl (81.0-99.0); Mean Platelet Volume 5.9 fL (7.4-10.4); Platelet Count 250 thou/uL (130-400); RBC Distribution Width 11.8 % (11.5-14.5); Red Blood Cell (RBC) Count 4.63 mill/uL (4.20-5.40); White Blood Cell (WBC) Count 5.7 thou/uL (4.8-10.8)
[2017-05-14 09:27] LABS: Anion Gap 12 mmol/L (10-20); BUN (Urea Nitrogen) 17 mg/dL (9.8-20.1); Bilirubin Negative (Negative); Blood, Urine Negative (Negative); Calc. Creatinine Clearance 0 mL/min (70-130); Calcium 9.8 mg/dL (7.8-10.44); Carbon Dioxide 30 mmol/L (23-31); Chloride 104 mmol/L (98-107); Clarity CLEAR (Clear); Estimated GFR-MDRD 77; Glucose 93 mg/dL (80-115); Glucose, Urine (Dipstick) Negative (Negative); Leukocyte Small (Negative); Nitrite Negative (Negative); Potassium 4.5 mmol/L (3.5-5.1); Protein, Urine (Dipstick) Negative (Neg-Trace); Sodium 141 mmol/L (136-145); Specific Gravity, Urine 1.029 (1.002-1.036); Urobilinogen 0.2 mg/dL (0.2-1.0)
[2017-05-14 09:28] LABS: INR-International Normal Ratio 0.9; Prothrombin Time 12.3 SEC (12.0-14.7)
[2017-05-14 09:35] LABS: Bacteria/HPF None Seen HPF (None Seen); Hyaline Casts/LPF 0-3 HYALINE CAST LPF (0-3 Hyaline); Pathc Cast-AUWi Flag 0.67 (0-2.49); RBC/HPF 0-3 HPF (0-3)
[2017-05-14 09:53] LABS: Renal Epithelial 0-3 HPF (0-3); Transitional Epithelial NONE SEEN HPF (0-3)
[2017-05-14 09:54] LABS: Crystals/HPF 2+ CA OXALATE HPF (Negative)
== END 2017-05-14 08:42 | disposition home or self-care (01) ==
LOC: LABBT 08:41
PROVIDERS: ATTEND Orthopaedic Surgery
DX: Z01.818 Encounter for other preprocedural examination (principal); M17.12 Unilateral primary osteoarthritis, left knee
CPT/HCPCS: 80048; 81001; 85025; 85610; 86850; 86900; 86901

== ENCOUNTER 2018-04-13 15:11 | Outpatient (CLI) | payer BC, MEDICARE ==
--- NOTE | 2018-04-13 17:54 | BD ---
BONE DENSITOMETRY USING DEXA: Date: 04/13/18 HISTORY: Postmenopausal screening for osteoporosis. FINDINGS: Lumbar Spine: BMD (g/cm2) L1 1.024 T-Score: 0.3 Z-Score: 1.9 L2 1.063 T-Score: 0.3 Z-Score: 2.1 L3 1.019 T-Score: -0.6 Z-Score: 1.2 L4 1.076 T-Score: 0.1 Z-Score: 2.0 L1-L4 1.046 T-Score: 0.0 Z-Score: 1.8 Femoral Neck: 0.733 T-Score: -1.0 Z-Score: 0.5 Total Femur: 0.964 T-Score: 0.2 Z-Score: 1.4 IMPRESSION: Normal exam. No evidence of osteopenia/osteoporosis. POS: [facility]
== END 2018-04-13 15:12 | disposition home or self-care (01) ==
LOC: BICMAMMO 15:11
PROVIDERS: ATTEND Obstetrics & Gynecology Gynecologic Oncology
DX: Z12.31 Encounter for screening mammogram for malignant neoplasm of breast (principal); Z13.820 Encounter for screening for osteoporosis; I10 Essential (primary) hypertension; C54.1 Malignant neoplasm of endometrium; Z85.828 Personal history of other malignant neoplasm of skin; Z80.3 Family history of malignant neoplasm of breast; Z85.42 Personal history of malignant neoplasm of other parts of uterus
CPT/HCPCS: 77063; 77067; 77080

== ENCOUNTER 2019-03-18 08:15 | Outpatient (CLI) | payer BC ==
[~2019-03-18 08:15] MED LIST: EPINEPHrine 1 MG/ML AMP ONE; Gadobenate Dimeglumine 529 MG/1 ML (20ML VIAL) ONE; Iopamidol 300 61% 50 ML VIAL FS ONE; Lidocaine 1% PF 10 ML AMP ONE
--- NOTE | 2019-03-18 09:44 | RAD ---
XR Shoulder Rt Arthrogram Right shoulder arthrogram CLINICAL HISTORY: Pain. PROCEDURE: Informed consent was obtained from the patient. [employer] imaging was performed. The patient's right shoulder was prepped and draped in a standard sterile fashion. Using fluoroscopic guidance, the right shoulder was localized. Topical anesthesia with buffered 1% lidocaine was performed. Subseq uently, uneventful access into the right shoulder was performed with a 22-gauge needle, which was confirmed with a small volume of radiopaque contrast. An 8 cc contrast cocktail containing gadolinium , radiopaque contrast, saline, lidocaine and epinephrine was subsequently injected. Fluoroscopic imaging was acquired and was stored for documentation. The needle was removed. There were no procedur al complications. Patient tolerated the procedure well. Patient was transferred to MRI Department to undergo MRI arthrogram. Reference separate report for fu rther details. IMPRESSION: Technically successful right shoulder arthrogram, under fluoroscopic guidance.
--- NOTE | 2019-03-18 12:21 | MRI ---
MR ARTHROGRAM RIGHT SHOULDER: Date: 03/18/19 PROVIDED CLINICAL HISTORY: Right shoulder pain. FINDINGS: Comparison made with study dated 11/21/08. Interval postoperative changes of rotator cuff repair. There is recurrent full thickness, full width retracted tearing of the supraspinatus and infraspinatus tendons with retraction to about the level o f the acromion. The teres minor and subscapularis tendons appear intact. There is medial subluxation of the long head biceps tendon. There is a 3 mm interarticular body within the inferior aspects of the glenohumeral joint centrally a djacent to the 6 o'clock position of the inferior labrum. The glenoid labrum and glenohumeral articul ar cartilage appear normal. Acromioclavicular joint osteoarthrosis is demonstrated without significant mass effect upon subjacent supraspinatus. No focal concerning regional marrow or muscular signal abnormality apparent. Rotator cuff muscular volume appears preserved. IMPRESSION: 1. Recurrent full thickness, full width tears of the supraspinatus and infraspinatus tendons. 2. 3.0 mm interarticular body. 3. Medial subluxation of long head biceps tendon suggesting bicipital sling injury. POS: OFF
== END 2019-03-18 08:16 | disposition home or self-care (01) ==
LOC: RAD 08:15
PROVIDERS: ATTEND Orthopaedic Surgery
DX: M25.511 Pain in right shoulder (principal); M75.121 Complete rotator cuff tear or rupture of right shoulder, not specified as traumatic; S46.901A Unspecified injury of unspecified muscle, fascia and tendon at shoulder and upper arm level, right arm, initial encounter
CPT/HCPCS: 23350; A9577; J0171; J2001; Q9967

== ENCOUNTER 2019-04-14 10:12 | Outpatient (CLI) | payer BC ==
--- NOTE | 2019-04-14 11:56 | MMO ---
Bilateral MAMMO Bilat Screen [facility]. CLINICAL HISTORY: Patient is 64 years old and is seen for screening. The patient has a history of uterine cancer in 2016. VIEWS: The views performed were: bilateral craniocaudal with tomosynthesis and bilateral mediolateral oblique with tomosynthesis. FILMS COMPARED: The present examination has been compared to prior imaging studies performed at [facility] on 08/02/2014, 01/04/2016, 02/27/2017 and 04/13/2018. This study has been interpreted with the assistance of computer-aided detection. MAMMOGRAM FINDINGS: There are scattered fibroglandular densities. Finding 1: There are stable benign appearing calcifications seen in both breasts. Finding 2: There are stable benign appearing densities seen in both breasts. There are no suspicious masses, suspicious calcifications, or new areas of architectural distortion. IMPRESSION: THERE IS NO MAMMOGRAPHIC EVIDENCE OF MALIGNANCY. A ROUTINE FOLLOW-UP MAMMOGRAM IN 1 YEAR IS RECOMMENDED. THE RESULTS OF THIS EXAM WERE SENT TO THE PATIENT. ACR BI-RADS Category 2 - Benign finding MAMMOGRAPHY NOTE: 1. A negative mammogram report should not delay a biopsy if a dominant of clinically suspicious mass is present. 2. Approximately 10% to 15% of breast cancers are not detected by mammography. 3. Adenosis and dense breasts may obscure an underlying neoplasm. Reported by: KEYON MARIEE MD Electonically Signed: [id number]
== END 2019-04-14 10:13 | disposition home or self-care (01) ==
LOC: BICMAMMO 10:12
PROVIDERS: ATTEND Obstetrics & Gynecology Gynecologic Oncology
DX: Z12.31 Encounter for screening mammogram for malignant neoplasm of breast (principal); Z85.42 Personal history of malignant neoplasm of other parts of uterus
CPT/HCPCS: 77063; 77067

== ENCOUNTER 2019-05-31 06:09 | Outpatient (CLI) | payer BC ==
[2019-05-31 10:24] LABS: #Eosinphils 0.4 thou/uL (0.0-0.7); #Lymphocytes 2.2 thou/uL (1.20-3.40); #Monocytes 0.8 thou/uL (0.11-0.59); %Basophils 0.5 % (0.0-1.0); %Eosinophils 5.1 % (0.0-10.0); %Lymphocytes 29.5 % (21.0-51.0); %Monocytes 10.8 % (0.0-10.0); %Neutrophils 54.1 % (42.0-75.0); Mean Corpuscular HGB CONC 33.5 g/dL (32.0-36.0); Mean Corpuscular Hemoglobin 31.1 pg (27.0-31.0); Mean Corpuscular Volume 92.9 fL (78.0-98.0); Mean Platelet Volume 6.2 fL (7.4-10.4); Platelet Count 248 thou/uL (130-400); RBC Distribution Width 11.4 % (11.5-14.5); Red Blood Cell (RBC) Count 4.51 mill/uL (4.20-5.40); White Blood Cell (WBC) Count 7.3 thou/uL (4.8-10.8)
[2019-05-31 10:46] LABS: Anion Gap 13 mmol/L (10-20); BUN (Urea Nitrogen) 18 mg/dL (9.8-20.1); Calc. Creatinine Clearance 0 mL/min (70-130); Calcium 9.6 mg/dL (7.8-10.44); Carbon Dioxide 27 mmol/L (23-31); Chloride 103 mmol/L (98-107); Estimated GFR-MDRD 84; Glucose 99 mg/dL (80-115); Potassium 4.1 mmol/L (3.5-5.1); Sodium 139 mmol/L (136-145)
== END 2019-05-31 06:10 | disposition home or self-care (01) ==
LOC: LABBT 06:09
PROVIDERS: ATTEND Orthopaedic Surgery
DX: Z01.818 Encounter for other preprocedural examination (principal); M75.101 Unspecified rotator cuff tear or rupture of right shoulder, not specified as traumatic
CPT/HCPCS: 80048; 85025; 93005; 93010

== ENCOUNTER 2019-06-02 06:12 | Day surgery (SDC) | payer BC ==
[2019-05-31 09:39] VITALS: BMI 28.8
[2019-06-02] MEDS ORDERED: Vancomycin 1.5 GRAM/300 ML BAG 1.5 GM/300 ML BAG ONE (06:17)
[2019-06-02] MEDS ORDERED: Fentanyl 100 MCG/2 ML VIAL ONE ×2 (06:38)
[2019-06-02] MEDS ORDERED: Midazolam HCl 2 mg/2 ml Vial ONE (06:38)
[2019-06-02] MEDS ORDERED: Ondansetron PF 4 MG/2 ML Vial IVP PRN (06:49)
[2019-06-02] MEDS ORDERED: HYDROcodone/Acetaminophen 10/325 mg Tablet PO PRN ×2 (06:49)
[2019-06-02] MEDS ORDERED: Zolpidem Tartrate 5 MG TAB PO PRN (06:49)
[2019-06-02] MEDS ORDERED: Ropivacaine 0.2% 550 ML 550 ML NERVE BLCK SCH (06:49)
[2019-06-02] MEDS ORDERED: Promethazine HCl 25 MG/ML VIAL IM PRN (06:49)
[2019-06-02] MEDS ORDERED: Acetaminophen 325 MG TAB PO PRN (06:49)
[2019-06-02] MEDS ORDERED: traMADol HCl 50 MG TAB PO PRN ×2 (06:49)
[2019-06-02] MEDS ORDERED: Fentanyl 100 MCG/2 ML VIAL IV PRN (06:50)
--- NOTE | 2019-06-02 10:42 | OP ---
DATE OF PROCEDURE: 06/02/2019 PREOPERATIVE DIAGNOSES: Recurrent right shoulder rotator cuff tear, impingement and biceps tendon pain. POSTOPERATIVE DIAGNOSES: Recurrent right shoulder rotator cuff tear, impingement and biceps tendon pain. PROCEDURES PERFORMED: Right open subacromial decompression followed by open rotator cuff repair and open biceps tenodesis. TOMB MAKER HELPER: Jaycob Aleman PA-C BLOOD LOSS: 30. COMPLICATIONS: None. ANESTHESIA: The patient had general anesthetic as well as a preoperative block. IMPLANTS: We used one triple-loaded titanium anchor. We also used one BioComposite 4.75 SwiveLock for double-row repair and we used one 7 x 23 BioComposite Bio-Tenodesis screw for our biceps tenodesis. DISPOSITION: She did go to recovery room in stable condition. INDICATIONS: A 64-year-old female who had a previous rotator cuff repair done elsewhere, continued to have pain, weakness, and inability to raise the arm and was found on MRI to have a recurrent cuff tear. At this time, she opted to have surgery. DESCRIPTION OF PROCEDURE: After all appropriate consent forms were explained and signed, she was taken back to the operative room and at this time was given general anesthetic. Once the level of anesthesia was appropriate, she was placed in a modified beach chair position with all bony prominences well padded. The right shoulder and upper extremity were then prepped and draped in standard surgical fashion. At this time, incision was made with a 10 blade down through skin. Bovie was used to coagulate any brisk venous bleeding. We then took full-thickness periosteal flap to expose the anterior acromion. A channel was placed underneath, and an anterior inferior acromioplasty was performed with a saw. This was then smoothed off with a rasp. At this time, there was a copious amount of bursa/scar tissue noted. This was removed being careful to not injure the underlying cuff. We were then able to visualize the rotator cuff. There was an area after approximately the front 20% of supraspinatus where the tendon was found to be torn and this went also medially in an intertendinous tear fashion going backwards toward this infraspinatus tendon. This entire area was freshened up with a blade and the bad tissue removed. We then scraped off our soft tissue and decorticated slightly using a curette and rongeur. Prior to performing our cuff repair, we went ahead and performed a biceps tenodesis by first opening up the bicipital groove and finding the biceps tendon. We then cut off the biceps from the superior labral insertion using the scissors. We then sewed the tendon followed by removing the intra-articular portion of the tendon. We then thoroughly cleaned out the bicipital groove, made sure there was good hemostasis. We then placed our pin drilled and placed our 7 x 23 BioComposite Bio-Tenodesis screw in standard fashion. Sutures were tied over top of this, so the screw would not back out. We then placed a couple of large Vicryl stitches to close our soft tissue and cover this out. Once this was done, we returned our attention to the rotator cuff. We placed three [id number] sutures to gather together our tendon and close our intertendinous tear. We then placed one triple-loaded titanium anchor at the cartilage bone interface. We then ran the stitches in mattress fashion to repair the tendon to the bone. All six of the sutures were then taken laterally down the arm and placed in a 4.75 SwiveLock for a double-row repair. At this time, all stitches were cut. We then thoroughly irrigated and dried. We then were able to evaluate the stability of our tear. There was absolutely no tension with the arm at the side. We were able to take through full range of motion and at this time, we irrigated some more. We then placed multiple #1 Ethibond sutures through the acromion to repair our deltoid, followed by running Vicryl to close our deltoid fascia. 2-0 Vicryl and surgical luz marina were then used on skin. At this time, a bulky sterile dressing was applied as well as a sling to protect our repair. The patient was then awakened. She was taken to recovery room in stable condition. All counts were correct at the end of the case. She received preoperative IV antibiotics. Job ID: [id number]
[2019-06-02] MEDS ORDERED: Succinylcholine Chloride 20 MG/ML 10 ml SYRINGE FS ONE (11:05)
[2019-06-02] MEDS ORDERED: PROPOFOL 200 MG/20 ML VIAL ONE (11:05)
[2019-06-02] MEDS ORDERED: Rocuronium Bromide 10 MG/ML (10ML VIAL) ONE (11:05)
[2019-06-02] MEDS ORDERED: Ondansetron PF 4 MG/2 ML Vial ONE (11:05)
[2019-06-02] MEDS ORDERED: Dexamethasone 20 MG/5 ML VIAL ONE (11:05)
[2019-06-02] MEDS ORDERED: Lidocaine 1% PF 5 ML VIAL ONE (11:05)
[2019-06-02] MEDS ORDERED: Ketorolac Tromethamine 30 MG/ML VIAL IVP SCH (12:00)
[2019-06-02] MEDS ORDERED: Ropivacaine 0.5% HCl/PF (150 MG/30 ML VIAL) ONE (13:36)
[2019-06-02] MEDS ORDERED: Ropivacaine 0.2% HCl/PF (40 MG/20 ML VIAL) ONE (13:36)
== END 2019-06-02 12:23 | disposition home or self-care (01) ==
LOC: SDC 06:12
PROVIDERS: ATTEND Orthopaedic Surgery
PROC: 3E0T3BZ Introduction of Anesthetic Agent into Peripheral Nerves and Plexi, Percutaneous Approach (ICD-10-PCS; principal; 2019-06-02)
PROC: 0RNJ0ZZ Release Right Shoulder Joint, Open Approach (ICD-10-PCS; principal; 2019-06-02)
PROC: 0RHJ04Z Insertion of Internal Fixation Device into Right Shoulder Joint, Open Approach (ICD-10-PCS; principal; 2019-06-02)
PROC: 0LQ10ZZ Repair Right Shoulder Tendon, Open Approach (ICD-10-PCS; principal; 2019-06-02)
PROC: 0LS10ZZ Reposition Right Shoulder Tendon, Open Approach (ICD-10-PCS; principal; 2019-06-02)
DX: M75.111 Incomplete rotator cuff tear or rupture of right shoulder, not specified as traumatic (principal); M25.811 Other specified joint disorders, right shoulder; M75.21 Bicipital tendinitis, right shoulder; G89.18 Other acute postprocedural pain; I10 Essential (primary) hypertension; E78.5 Hyperlipidemia, unspecified; Z79.899 Other long term (current) drug therapy; Z88.5 Allergy status to narcotic agent; Z88.8 Allergy status to other drugs, medicaments and biological substances; Z96.652 Presence of left artificial knee joint; Z98.890 Other specified postprocedural states
CPT/HCPCS: A4306; C1713; J0690; J1100; J2001; J2250; J2405; J2704; J2795; J3010

== ENCOUNTER 2020-04-21 14:04 | Outpatient (CLI) | payer BC | END 2020-04-21 14:05 | disposition home or self-care (01) | LOC: BICMAMMO 14:04 | PROVIDERS: ATTEND Family Medicine | DX: Z12.31 Encounter for screening mammogram for malignant neoplasm of breast (principal); N63.10 Unspecified lump in the right breast, unspecified quadrant; Z85.42 Personal history of malignant neoplasm of other parts of uterus | CPT/HCPCS: 77063; 77067 ==

== ENCOUNTER 2020-04-28 08:52 | Outpatient (CLI) | payer BC ==
--- NOTE | 2020-04-28 09:13 | ULT ---
EXAM: US Breast Limited Rt PROVIDED CLINICAL HISTORY: Abnormal screening mammogram COMPARISON: Screening mammogram 04/21/2020 FINDINGS: Limited sonographic interrogation was performed of the right breast in the region of mammographic con cern. There is a 6 mm simple cyst in this location, corresponding to the mammogram finding. No concerning sonographic findings are evident. IMPRESSION: Simple cyst corresponds to the mammogram finding. No concerning findings. Return to screening. BI-RADS 2 -- benign findings
== END 2020-04-28 08:53 | disposition home or self-care (01) ==
LOC: BICULT 08:52
PROVIDERS: ATTEND Family Medicine
DX: N63.10 Unspecified lump in the right breast, unspecified quadrant (principal); N60.01 Solitary cyst of right breast